=== PATIENT | female | born 1980 | race American Indian/Alaskan Native ===

== ENCOUNTER 2020-03-07 21:55 | Emergency (ER) | payer OTHER ==
[2020-03-07] MEDS ORDERED: FAMOTIDINE 20 MG/2 ML INJ IV ONE ×2 (22:00→22:38)
--- NOTE | 2020-03-07 22:01 | Emergency Department Report ---
ED Allergic Reaction HPI - General Stated complaint: ALLERGIC REACTION Time Seen by Provider: 03/07/20 22:00 Source: patient, EMS Mode of arrival: Ambulatory Limitations: No Limitations - History of Present Illness Initial Comments: Patient is a 39-year-old female that presents emergency room with an allergic reaction. Patient complains of tongue swelling. Patient states is difficulty to talk due to the size of her tongue. Patient states it has improved since being given meds by EMS. Patient states she is able to talk a little bit better. Patient denies shortness of breath. Patient denies difficulty swallowing. Patient denies pain. Patient denies throat pain. Patient denies wheezing. Patient denies cough. Patient states she had a piece of pizza this evening and then developed the symptoms. Patient is not sure what she is allergic to. Patient states she is allergic to oxycodone and Bactrim. Patient states she does not take any medications. Patient denies rash. Patient denies facial swelling. Patient denies recent travel. Patient denies recent international travel. Patient denies exposure to the novel coronavirus. Patient denies sick contacts. Patient denies fever and chills. Patient denies cough. Patient denies diarrhea. Patient denies coming in contact with anybody with symptoms of the novel coronavirus. MD Complaint: allergic reaction -: Sudden Symptoms: itching, orolingual swelling. denies: rash, facial swelling, lip swelling, difficulty swallowing, difficulty breathing, hoarseness, syncopy, dizziness, nausea, vomiting, abdominal pain Severity: severe Treatment Prior to Arrival: benadryl, steroids Previous Allergy History: none - Related Data Previous Rx's Medication Instructions Recorded Last Taken Type methylPREDNISolone [Medrol 4MG 4 mg PO DAILY 6 Days #1 tab.ds.pk 03/07/20 Unknown Rx DOSEPAK (21 tabs)] Allergies Allergy/AdvReac Type Severity Reaction Status Date / Time acetaminophen [From Tylox] Allergy Swelling Verified 03/07/20 22:23 oxycodone [From Tylox] Allergy Swelling Verified 03/07/20 22:23 sulfamethoxazole Allergy Swelling Verified 03/07/20 22:23 [From Bactrim] trimethoprim [From Bactrim] Allergy Swelling Verified 03/07/20 22:23 ED Review of Systems ROS: Stated complaint: ALLERGIC REACTION Other details as noted in HPI Constitutional: denies: chills, fever Eyes: denies: eye pain, eye discharge, vision change ENT: as per HPI. denies: ear pain, throat pain Respiratory: denies: cough, shortness of breath, wheezing Cardiovascular: denies: chest pain, palpitations Endocrine: no symptoms reported Gastrointestinal: denies: abdominal pain, nausea, diarrhea Genitourinary: denies: urgency, dysuria, discharge Musculoskeletal: denies: back pain, joint swelling, arthralgia Skin: denies: rash, lesions Neurological: denies: headache, weakness, paresthesias Psychiatric: denies: anxiety, depression Hematological/Lymphatic: denies: easy bleeding, easy bruising ED Past Medical Hx - Past Medical History Previous Medical History?: No - Surgical History Past Surgical History?: No - Family History Family history: no significant - Social History Smoking Status: Never Smoker Substance Use Type: None - Medications Home Medications: Home Medications Medication Instructions Recorded Confirmed Last Taken Type methylPREDNISolone [Medrol 4MG 4 mg PO DAILY 6 Days #1 tab.ds.pk 03/07/20 Unknown Rx DOSEPAK (21 tabs)] ED Physical Exam - General Limitations: No Limitations General appearance: alert, in no apparent distress - Head Head exam: Present: atraumatic, normocephalic - Eye Eye exam: Present: normal appearance - ENT ENT exam: Present: mucous membranes moist, other (Tongue is a mildly swollen. Patient is able to talk without difficulty.) - Neck Neck exam: Present: normal inspection - Respiratory Respiratory exam: Present: normal lung sounds bilaterally. Absent: respiratory distress - Cardiovascular Cardiovascular Exam: Present: regular rate, normal rhythm. Absent: systolic mu rmur, diastolic murmur, rubs, gallop - GI/Abdominal GI/Abdominal exam: Present: soft, normal bowel sounds - Extremities Exam Extremities exam: Present: normal inspection - Back Exam Back exam: Present: normal inspection - Neurological Exam Neurological exam: Present: alert, oriented X3 - Psychiatric Psychiatric exam: Present: normal affect, normal mood - Skin Skin exam: Present: warm, dry, intact, normal color. Absent: rash ED Course Vital Signs 03/07/20 22:09 Temperature 98.2 F Pulse Rate 102 H Respiratory 15 Rate Blood Pressure 130/90 [Left] O2 Sat by Pulse 100 Oximetry - Reevaluation(s) Reevaluation #1: Initial evaluation done. Patient will be given IV Pepcid. We will continue to monitor patient. 03/07/20 22:00 Reevaluation #2: Patient states her tongue is returning to normal. Patient states she is feeling better. 03/07/20 22:47 Reevaluation #3: Patient states she is feeling much better. Patient denies itching. Patient states her tongue feels back to normal size. Patient able to talk without difficulties. I discussed all clinical findings with patient. I discussed plan of care with patient. Patient agrees with plan of care. Patient is stable for discharge. Patient will be discharged home. Patient given discharge instructions. Patient voiced understanding of discharge instructions. 03/07/20 23:40 ED Medical Decision Making - Medical Decision Making Patient is a 39-year-old female that presents emergency room with complaints of tongue swelling and generalized itching. Patient brought in by EMS and was given Solu-Medrol and Benadryl. Patient responded well to her treatment. Patient still had a little bit of tongue swelling and patient was given Pepcid 20 mg IV. Patient responded well to treatment. Patient symptoms essentially resolved prior to discharge. Patient given a steroid course and a referral to an medical transcription supervisor. Patient stable for discharge. Patient discharged home - Differential Diagnosis Allergic reaction, tongue swelling, itching. Critical care attestation.: If time is entered above; I have spent that time in minutes in the direct care of this critically ill patient, excluding procedure time. ED Disposition Clinical Impression: Pruritus, Tongue swelling Allergic reaction Qualifiers: Encounter type: initial encounter Qualified Code(s): T78.40XA - Allergy, unspecified, initial encounter Disposition: TO HOME OR SELFCARE Is pt being admited?: No Does the pt Need Aspirin: No Condition: Stable Instructions: Food Allergy (ED), Allergies (ED) Additional Instructions: Patient to follow-up with primary care in 2 to 3 days. Patient to follow-up with medical transcription supervisor in 2 to 3 days. Patient to rest. Patient to increase water. t. Patient to take Tylenol or ibuprofen as needed for pain. Patient to take meds as directed. Patient to return to the ER if condition worsens, changes or new symptoms arise. Prescriptions: methylPREDNISolone [Medrol 4MG DOSEPAK (21 tabs)] 4 mg PO DAILY 6 Days #1 tab.ds.pk Referrals: PRIMARY CARE, [Primary Care Provider] - 2-3 Days ADDIS ZAMBRANO MD [Referring] - 2-3 Days Time of Disposition: 23:43
[2020-03-07 22:23] VITALS: BP 130/90
== END 2020-03-08 00:01 | disposition home or self-care (01) ==
LOC: ED 21:55
DX: T78.40XA Allergy, unspecified, initial encounter (principal); L29.9 Pruritus, unspecified; Z88.6 Allergy status to analgesic agent; Z88.2 Allergy status to sulfonamides; X58.XXXA Exposure to other specified factors, initial encounter
CPT/HCPCS: 96374